=== PATIENT | male | born 1955 | race Caucasian/White ===

== ENCOUNTER 2019-12-07 11:38 | Outpatient (CLI) | payer MEDICARE, SELFPAY ==
--- NOTE | 2019-12-07 12:05 | XR_ITS ---
WS: [id number] CHEST 2 VIEWS HISTORY: PARALYSIS OF VOCAL CORDS AND LARYNX, DYSPHONIA COMPARISON: 02/23/2014 Lungs: Hyperinflated lungs with changes of emphysema. Linear scar in the LEFT lower lobe. Normal vasc ulature. Cardiac size: Normal. Mediastinum/Aorta: Mild atherosclerosis aorta. Bones: Chronic appearing medial dislocation of the LEFT humeral head. Also seen on 05/06/2018. XR/XR chest 2V* [id number] IMPRESSION: Chronic emphysema with no pneumonia.
== END 2019-12-07 11:39 | disposition home or self-care (01) ==
PROVIDERS: Family Provider Family Medicine; PCP Family Medicine; Visit Provider Specialist
DX: R49.0 Dysphonia (principal); J38.01 Paralysis of vocal cords and larynx, unilateral; J43.9 Emphysema, unspecified
CPT/HCPCS: 71046

== ENCOUNTER 2019-12-12 10:31 | Outpatient (CLI) | payer MEDICARE, SELFPAY ==
--- NOTE | 2019-12-12 11:03 | MR_ITS ---
WS: [id number] MRI NECK without CONTRAST. COMPARISON: None Multiplanar, multisequence imaging is performed without contrast. Patient refused IV contrast. History: Paralyzed vocal cord. Symmetric appearance of the soft tissues of the larynx. No mass is identified. Study is limited witho ut IV contrast. Normal appearance of the fat in the parapharyngeal soft tissues. Epiglottis is negati ve. There is a small amount of fluid in the RIGHT sphenoid sinus. Small amount of fluid in the RIGHT mast oid air cells. No adenopathy. Benign appearing LEFT cervical lymph nodes measure up to 7 mm. Degenerative changes in the cervical spine. Advanced cervical spondylosis at C5-6. Bridging osteophyt es and disc with mild contact on the ventral cord at C4-5. MR/[place] [id number] IMPRESSION: 1. No neck mass or adenopathy. 2. RIGHT sphenoid sinus disease and RIGHT mastoid effusion.
== END 2019-12-12 10:32 | disposition home or self-care (01) ==
PROVIDERS: Family Provider Family Medicine; PCP Family Medicine; Visit Provider Specialist
DX: J38.01 Paralysis of vocal cords and larynx, unilateral (principal); R49.0 Dysphonia; J32.3 Chronic sphenoidal sinusitis
CPT/HCPCS: 70336

== ENCOUNTER → 2020-11-19 09:45 | Outpatient (BNVA) | payer MEDICARE, SELFPAY | PROVIDERS: Family Provider Family Medicine; PCP Family Medicine; Referring Provider Family Medicine; Visit Provider Orthopaedic Surgery | DX: M17.11 Unilateral primary osteoarthritis, right knee (principal); M71.21 Synovial cyst of popliteal space [Baker], right knee | CPT/HCPCS: 73560; 73565 ==

== ENCOUNTER 2023-08-19 09:28 | Outpatient (CLI) | payer MEDICARE, SELFPAY ==
--- NOTE | 2023-08-19 | XRR_ITS ---
PROCEDURE INFORMATION: Exam: XR Left Knee Exam date and time: 08/19/2023 8:14 AM Age: 67 years old Clinical indication: Condition or disease; Synovial cyst; Knee; Left; Additional info: Synovial cyst of popliteal space lizama left knee.No history of trauma or recent surgery is provided. TECHNIQUE: Imaging protocol: Radiologic exam of the left knee. 3image(s) are provided. Views: 3 views. COMPARISON: Knee radiograph 11/19/2020. FINDINGS: Bones/joints: Osseous alignment is maintained.No interval displaced fracture or dislocation is appreciated. There are well-maintained cortical margins with no interval periosteal reaction currently appreciated. There is some subtle indentation although could also be processes including developmental or previous inflammatory related about the anterior inferior femur. There is a small amount of joint fluid present. There is some slight spurring at the patellar insertional level. There is some mild multi compartmental degeneration with spurring and narrowing at the medial and slightly more pronounced at the patellofemoral junction. There appears to be some faint chondrocalcinosis. Soft tissues: No radiopaque foreign body or subcutaneous emphysema is appreciated. There are some chronic soft tissue calcifications present. Other findings: No other significant interval changes are appreciated. XR/XR knee LT 3V* [id number] IMPRESSION: 1. Osseous alignment is maintained with some mild chronic appearing multi compartmental degeneration with patellofemoral predominance.No interval fracture or dislocation is appreciated. 2. There is a small amount of joint fluid present including some chronic appearing calcification for example at the suprapatella level. If there is clinical concern for enlarging fluid or popliteal fossa fluid then consider dedicated popliteal ultrasound or MRI.
== END 2023-08-19 09:29 | disposition home or self-care (01) ==
LOC: RADOUTREAD 09:30
PROVIDERS: PCP Family Medicine; Visit Provider Family Medicine
DX: M25.462 Effusion, left knee (principal); M25.562 Pain in left knee; R26.2 Difficulty in walking, not elsewhere classified
CPT/HCPCS: 20610; 80503; 87070; 87075; 87205; 89050; 99214

== ENCOUNTER 2024-05-09 07:38 | Outpatient (CLI) | payer MEDICARE, SELFPAY ==
--- NOTE | 2024-05-09 07:43 | CT_ITS ---
WS: [id number] CT ABDOMEN AND PELVIS WITH AND WITHOUT CONTRAST HISTORY: MICROSCOPIC HEMATURIA TECHNIQUE: Unenhanced 5 mm axial imaging first performed through the abdomen. Post contrast imaging t hrough the abdomen and pelvis. Oral contrast has not been provided. Sagittal and coronal reformats a re submitted. All CT scans at [facility] use at least one of these dose optimization techniqu es: automated exposure control; mA and/or kV adjustment per patient size (includes targeted exams whe re dose is matched to clinical indication); or iterative reconstruction. CONTRAST: Omnipaque 350; 95 mL IV. DLP: 2147.80 mGy.cm COMPARISON: 02/23/2014 Dependent changes at the lung bases. Focal pleural thickening in the LEFT lower lobe. This is at the site of a prior pneumonia noted on 02/23/2014. Heart size is normal. Small hiatal hernia. RIGHT kidney: No obstruction or calcification. Several cortical cysts. The largest in the lower pole 3.1 x 3.0 x 3.2 cm. No solid mass. No uroepithelial lesions. Ureter is well demonstrated to the bladd er on delayed imaging. No soft tissue mass or stricture. LEFT kidney: No obstruction or calcification. Mild perinephric stranding. There are multiple cortical cysts. The largest anterior in the lower pole measures 5.0 x 3.9 x 4.2 cm. No solid mass. There are a few minimally complex cysts that do not significantly enhance. No uroepithelial lesions. Ureter is well demonstrated to the bladder on delayed imaging. No soft tissue mass or stricture. Scattered hepatic cysts. No bile duct dilatation. Normal portal vein and gallbladder. Normal spleen. Normal common bile duct. Normal pancreas and adrenal glands. Mild atherosclerosis aorta. Retroaortic LEFT renal vein. No ascites or adenopathy. No GI tract obstruction. Moderate diverticular burden throughout the colon. Increasing diverticular burden in the sigmoid. No acute diverticulitis. Normal appendix. Bilateral inguinal canals are patent. The RIGHT inguinal hernia contains a loop of nonobstructed smal l bowel. Urinary bladder is well distended. No intraluminal filling defect. No enhancing lesions on the early contrast injection. Mild prostate heterogeneity. No destructive bone lesions. CT/CT abdomen pelvis wo/w [id number] IMPRESSION: 1. No renal obstruction or calcifications. 2. Bilateral renal cysts as described above. No solid mass. 3. No uroepithelial lesions. 4. Mild prostate heterogeneity. 5. Bilateral patent inguinal canals. There is a loop of nonobstructed small radha wel in the RIGHT inguinal canal. 6. Small hepatic cysts. 7. Moderate diverticular burden throughout the colon greatest in the sigmoid. No acute diverticulitis.
[2024-05-09] MEDS: iohexol 350 mg/mL 500 mL Btl (per mL) IV (08:13)
== END 2024-05-09 07:39 | disposition home or self-care (01) ==
LOC: RAD 07:38
PROVIDERS: PCP Family Medicine; Visit Provider Family Medicine
DX: R31.29 Other microscopic hematuria (principal); J98.4 Other disorders of lung; K44.9 Diaphragmatic hernia without obstruction or gangrene; Q61.02 Congenital multiple renal cysts; K76.89 Other specified diseases of liver; K40.90 Unilateral inguinal hernia, without obstruction or gangrene, not specified as recurrent
CPT/HCPCS: 74178; Q9967